=== PATIENT | female | born 1995 | race Two or more races ===

== ENCOUNTER 2025-05-21 01:01 | Outpatient (CLI) | payer OTHER ==
[2025-05-20 23:39] VITALS: BP 102/69
[2025-05-21 06:00] VITALS: BP 107/69
[2025-05-21 06:46] VITALS: BP 110/73; O2SAT 97
[2025-05-21 09:20] VITALS: BP 120/72
== END 2025-05-21 09:20 | disposition home or self-care (01) ==
LOC: OBS/DEL 01:01
PROVIDERS: ATTEND Obstetrics & Gynecology
DX: O26.893 Other specified pregnancy related conditions, third trimester (principal); Z3A.37 37 weeks gestation of pregnancy

== ENCOUNTER 2025-05-29 13:34 | Inpatient (IN) | payer OTHER ==
[~2025-05-29] VITALS: Ht 154.9 cm; Wt 59.0 kg
[2025-05-29] MEDS ORDERED: ATABEX DHA 200200 MG PO (13:38)
[2025-05-29 14:09] LABS: BASO % 0.4 % (0.1-1.2); EOS # 0.83 (0.04-0.54); EOS % 6.2 % (0.7-7.0); LYMPH # 2.20 (1.18-3.74); LYMPH % 16.5 % (19.3-53.1); MEAN PLATELET VOLUME 10.50 fl (9.4-12.4); MONO # 0.90 (0.24-0.82); MONO % 6.7 % (4.7-12.5); NEUT # 9.22 (1.56-6.13); NEUT % 69.1 % (34.0-71.1); RED CELL DISTRIBUTION WIDTH 14.5 % (11.6-14.4)
[2025-05-29 14:31] LABS: INR < 0.93
[2025-05-29 14:32] LABS: ALT/SGPT 32.0 U/L (12-78); AST/SGOT 25.0 U/L (15-37); BILIRUBIN TOTAL 0.64 mg/dL (0.3-1.2); BUN CREA RATIO 20.0 (7.0-25.0); CREATININE SERUM 0.44 mg/dL (0.55-1.02); GFR 165.71; GLOBULINA 3.8 G/DL (2.4-3.5); GLUCOSE FASTING 71.0 mg/dL (65-100); OSMOLALITY SERUM 277.0 MOSM/KG (275-295)
[2025-06-03 06:32] VITALS: BP 111/77
[2025-06-03] MEDS ORDERED: MORPHINE SULFATE 4 MG/ML CARTRIDGE IV PRN ×2 (11:30→17:36)
[2025-06-03] MEDS ORDERED: OXYTOCIN 1,000 ML IV SCH (11:30)
[2025-06-03] MEDS ORDERED: ERYTHROMYCIN BASE OPHT 1GM EACH TUBE OP ONE (11:45)
[2025-06-03] MEDS ORDERED: CEFAZOLIN SODIUM 1,000 MG VIAL IV ONE (11:45)
[2025-06-03] MEDS ORDERED: OXYTOCIN 20 UNITS/1000ML RL PIGGYBAG IV ONE (11:45)
[2025-06-03] MEDS ORDERED: CITRIC ACID/SODIUM CITRATE 30 ML BLIST.PACK PO ONE (11:45)
[2025-06-03 14:31] VITALS: BP 121/75
[2025-06-03 16:25] VITALS: BP 111/71
[2025-06-03] MEDS ORDERED: KETOROLAC TROMETHAMINE 30 MG VIAL IV PRN (17:45)
[2025-06-04] VITALS: BP 94/56
[2025-06-04 08:00] VITALS: BP 90/55
[2025-06-04] MEDS ORDERED: MORPHINE SULFATE 4 MG/ML CARTRIDGE IV PRN (11:30)
[2025-06-04 13:51] LABS: BASO % 0.2 % (0.1-1.2); EOS # 0.43 (0.04-0.54); EOS % 2.2 % (0.7-7.0); LYMPH # 1.86 (1.18-3.74); LYMPH % 9.5 % (19.3-53.1); MEAN PLATELET VOLUME 10.90 fl (9.4-12.4); MONO # 1.52 (0.24-0.82); MONO % 7.8 % (4.7-12.5); NEUT # 15.50 (1.56-6.13); NEUT % 79.6 % (34.0-71.1); RED CELL DISTRIBUTION WIDTH 14.6 % (11.6-14.4)
[2025-06-04 16:37] VITALS: BP 97/63
[2025-06-04 20:00] VITALS: BP 101/66
[2025-06-05 00:41] VITALS: BP 109/72
[2025-06-05] MEDS ORDERED: OxyCODONE HCL 5 MG TABLET (ROXICODONE) PO PRN (06:00)
[2025-06-05 08:00] VITALS: BP 93/65
== END 2025-06-05 17:26 | disposition home or self-care (01) | DRG 788 ==
LOC: O/R 06-03 07:00 → OB/GYN 06-03 09:07
PROVIDERS: ADMIT Obstetrics & Gynecology; ATTEND Obstetrics & Gynecology
PROC: 4A1HXCZ Monitoring of Products of Conception, Cardiac Rate, External Approach (ICD-10-PCS; 2025-06-03)
PROC: 10D00Z1 Extraction of Products of Conception, Low, Open Approach (ICD-10-PCS; principal; 2025-06-03 12:30)
DX: O32.1XX0 Maternal care for breech presentation, not applicable or unspecified (principal); Z3A.38 38 weeks gestation of pregnancy; Z37.0 Single live birth